=== PATIENT | female | born 1985 | race African-American/Black ===

== ENCOUNTER 2020-03-10 17:00 | Emergency (ER) | payer MEDICAID ==
[~2020-03-10] VITALS: Ht 160 cm; Wt 93.8 kg
[2020-03-10 17:32] LABS: CLARITY URINE CLOUDY (CLEAR); COLOR URINE YELLOW (YELLOW); KETONES URINE NEGATIVE (NEGATIVE); LEUKOCYTE ESTERASE URINE NEGATIVE (NEGATIVE); NITRITE URINE NEGATIVE (NEGATIVE); OCCULT BLOOD URINE NEGATIVE (NEGATIVE); PH URINE 6.5 (4.5-8.0); PROTEIN URINE NEGATIVE (NEGATIVE); SPECIFIC GRAVITY URINE 1.027 (1.005-1.030)
[2020-03-10] MEDS ORDERED: IBUPROFEN 600MG TABLET PO STA (17:37)
[2020-03-10 17:49] VITALS: BP 144/67
== END 2020-03-10 20:09 | disposition home or self-care (01) ==
LOC: ER 17:00
DX: M54.6 Pain in thoracic spine (principal); R06.00 Dyspnea, unspecified
CPT/HCPCS: 71045; 81003; 81025; 99284

== ENCOUNTER 2022-06-20 09:36 | Emergency (ER) | payer MEDICAID, MEDICARE ==
[~2022-06-20] VITALS: Ht 170.2 cm; Wt 82.0 kg
[2022-06-20] MEDS ORDERED: KETOROLAC 30MG/ML VIAL IM STA (10:33)
[2022-06-20] MEDS ORDERED: ACETAMINOPHEN WITH CODEINE 300/30MG TABLET PO STA ×2 (10:33→12:05)
[2022-06-20 10:53] LABS: CLARITY URINE CLEAR (CLEAR); COLOR URINE YELLOW (YELLOW); KETONES URINE NEGATIVE (NEGATIVE); LEUKOCYTE ESTERASE URINE NEGATIVE (NEGATIVE); NITRITE URINE NEGATIVE (NEGATIVE); OCCULT BLOOD URINE 2+ (NEGATIVE); PH URINE 6.5 (4.5-8.0); PROTEIN URINE NEGATIVE (NEGATIVE); SPECIFIC GRAVITY URINE 1.015 (1.005-1.030); UROBILINOGEN URINE 0.2 E.U./dL (0.2-1.0)
[2022-06-20] MEDS ORDERED: DEXAMETHASONE 10 MG/ML VIAL IM STA (12:05)
[2022-06-20] MEDS ORDERED: HYDR-4001 MT ×3 (12:15→15:46)
[2022-06-20] MEDS ORDERED: NAPR-681 PO ×3 (12:15→15:46)
[2022-06-20 13:21] VITALS: BP 116/65
== END 2022-06-20 13:22 | disposition home or self-care (01) ==
LOC: ER 09:36
DX: M54.50 Low back pain, unspecified (principal)
CPT/HCPCS: 81003; 96372; 99284; J1100; J1885; Z7610